=== PATIENT | female | born 1945 | race Caucasian/White ===

== ENCOUNTER → 2021-07-28 10:59 | Outpatient (BNVA) | payer OTHER, SELFPAY | PROVIDERS: Visit Provider Psychiatry & Neurology Neurology | DX: F09 Unspecified mental disorder due to known physiological condition (principal) ==

== ENCOUNTER 2021-08-13 09:41 | Outpatient (REF) | payer OTHER, SELFPAY ==
--- NOTE | ~2021-08-13 | MR_ITS ---
EXAMINATION: MR BRAIN WITHOUT CONTRAST CLINICAL INFORMATION: 76-year-old with anxiety disorder, cognitive disorder. COMPARISON: None TECHNIQUE: Multiplanar multisequence MR imaging of the brain was done without IV contrast. FINDINGS: Brain Volume: Mild diffuse generalized brain parenchymal volume loss with no definite disproportionate focal regional predominance within the limitations of a qualitative assessment. Structural: No malformations. Brain and Meninges: Relatively extensive patchy zones of FLAIR/T2 signal hyperintensity in the subcortical and deeper periventricular white matter of both cerebral hemispheres with patchy zones of T2 hyperintensity in the insular and subinsular regions bilaterally consistent with chronic ischemic microangiopathy. There is bilateral periventricular leukoareosis as well. Gradient refocused imaging demonstrates no evidence of brain parenchymal hemorrhage, hemosiderin staining or abnormal brain parenchymal mineral deposition. Note is made of a 0.8 x 0.4 mm focus of extra-axial signal loss which appears dural-based along the lateral aspect of the anterior right temporal lobe in addition to a smaller similar-appearing focus just anterior to this measuring 0.6 x 0.3 cm. These show susceptibility-weighted signal loss and may reflect small calcified meningiomas with no significant adjacent mass effect or brain parenchymal edema. Otherwise, no significant space-occupying process, extra-axial fluid collection or mass effect is identified. Prominent perivascular spaces are noted in the inferolateral basal ganglia. Ventricles and Subarachnoid Spaces: The ventricular system and subarachnoid spaces are consistent with volume loss without hydrocephalus. Orbital Structures: Bilateral lens extractions are noted. The visualized orbital structures are grossly unremarkable within the limitations of the study. Vascular: Signal voids are noted in the visualized major intracranial vessels. Osseous Structures, Sinuses/Mastoids, Extracranial Soft Tissues: Minor mucosal thickening in the ethmoid complex is noted. Visualized extracranial soft tissue structures appear grossly unremarkable. Bone marrow signal intensity is diffusely heterogeneous which is nonspecific. Multilevel cervical DDD and spondylosis is noted between C2-C3 and C5-C6 inclusive with posterior disc osteophyte complex and flattening of the ventral thecal sac at C3-C4. MR/MR head/brain wo con IMPRESSION: 1. Chronic ischemic microangiopathy in the white matter of both cerebral hemispheres with no evidence for acute or subacute cerebral ischemia, brain parenchymal hemorrhage, extra-axial fluid collection, significant space-occupying process, mass effect or hydrocephalus. 2. Findings suggesting 2 small densely calcified meningiomata along the lateral aspect of the anterior right temporal lobe with no significant mass effect. Consider follow up without and with contrast in 6 months to reassess. 3. Upper cervical degenerative changes as discussed above.
== END 2021-08-13 09:42 | disposition home or self-care (01) ==
LOC: HO.MRI 09:41
PROVIDERS: Visit Provider Psychiatry & Neurology Neurology
DX: F41.9 Anxiety disorder, unspecified (principal); F09 Unspecified mental disorder due to known physiological condition
CPT/HCPCS: 70551

== ENCOUNTER → 2022-08-23 11:34 | Outpatient (BNVA) | payer OTHER, SELFPAY | PROVIDERS: Visit Provider Psychiatry & Neurology Neurology ==

== ENCOUNTER 2022-12-22 11:09 | Outpatient (AMB) | payer OTHER, SELFPAY ==
--- NOTE | 2022-12-22 11:12 | A.OFFVIS_ITS ---
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 Pt lives in an assisted living, and she is in independent all her ADLs, and participates in activities Her neuropsych was c/w dementia. MRI showed multiple white matter changes. She started memantine 7 mg and titrated to 28 mg. Denies side effects. Pt sleeps well, her mood is stable with cigalopram 10 mg daily. She still forgetful and misplace things, but overall her memory is stable. Denies hallucinations or behavior issue. She walks three times a day. COUNT INCLUDES THE [facility] Medical History Carcinoid tumor Cognitive disorder Colon cancer COPD (chronic obstructive pulmonary disease) Dementia Diverticulosis Hematuria HTN (hypertension) Hypothyroidism Osteopenia Prediabetes Thyroid cancer Vitamin B12 deficiency Vitamin D deficiency Surgical History History of hemicolectomy History of tonsillectomy and adenoidectomy Hx of appendectomy Hx of colonoscopy Hx of eye surgery Hx of thyroidectomy Family History Mother Alzheimer disease Father Embolism Sister Breast cancer Diabetes Social History (Updated 12/22/22 @ 11:14 by Malini Rios CMA) Household Members Other:: assisted living Housing: Assisted Living Facility Alcohol intake: never Patient Tobacco Use Status: Former Tobacco user Physical Exam Vital Signs: Last Vital Signs Pulse 70 12/22/22 11:14 BP 148/68 H 12/22/22 11:14 Pulse Ox 98 12/22/22 11:14 Oxygen Delivery Method Room Air 12/22/22 11:14 Const General: cooperative, healthy appearing, comfortable and no acute distress Nutritional Appearance: average body habitus Limitations: no limitations HEENT Head: Yes normal to inspection Eyes Pupils: Equal, round and reactive pupils present Neck Neck: Yes normal visual inspection and Yes full ROM Neuro Other: MMSE- Date- 03/11 Place-2/ Registration-05/07 Spelling 5 letter- 07/09 Recall- 0/3 Repetition- normal 3 step commands 3/3 reading-normal writing- normal Intersecting pentagons- normal Clock drawing-normal Cranial nerves: Yes CN's II-XII intact bilaterally, Yes Facial sensation intact/muscles of mastication intact, Yes Equal, round and reactive pupils present, Yes Normal accommodation reflex present, Yes Bilaterally intact EOM present, Yes Nystagmus not present, Yes Normal facial strength present, Yes Midline tongue present and Yes Symmetric palate elevation present Cognition (Neuro): abnormal cognition (MMSE - she did well on complex tasks but missed points on orientation) Gait exam (Neuro): Normal gait present Coordination: [id number] test normal Psych Appearance: grossly normal Affect: Anxious affect present Assessment & Plan Assessment & Plan (1) Dementia: Code(s): F03.90 - Unspecified dementia, unspecified severity, without behavioral disturbance, psychotic disturbance, mood disturbance, and anxiety (2) Anxiety: Code(s): F41.9 - Anxiety disorder, unspecified Plan Continue to take menatine XR 28 mg qd. Continue to take citalopram 10mg qd. Encouraged to keep having social, physical and cognitive activities. Medications: Changed From memantine start 11/24 22 28 mg PO DAILY 30 ea 0RF To memantine start 11/24 22 28 mg PO DAILY 90 ea 1RF 90 days Discontinued memantine start 09/23/22 Discontinued Reason: Doctor's Order 14 mg PO DAILY 30 ea 0RF memantine start 10/24/22 Discontinued Reason: Doctor's Order 21 mg PO DAILY 30 ea 0RF memantine Discontinued Reason: Doctor's Order 7 mg PO DAILY 30 ea 0RF Coding Level of Care Code Est Pt Level 3 (71531) Diagnoses Dementia F03.90 Anxiety F41.9
[2022-12-22 11:14] VITALS: BP 148/68; PULSE 70; O2SAT 98
== END 2022-12-22 11:29 | disposition home or self-care (01) ==
PROVIDERS: Visit Provider Nurse Practitioner Family
DX: F03.90 Unspecified dementia, unspecified severity, without behavioral disturbance, psychotic disturbance, mood disturbance, and anxiety (principal); F41.9 Anxiety disorder, unspecified
CPT/HCPCS: 99213

== ENCOUNTER → 2022-12-22 11:09 | Outpatient (BNVA) | payer OTHER, SELFPAY | PROVIDERS: Visit Provider Nurse Practitioner Family | DX: F03.90 Unspecified dementia, unspecified severity, without behavioral disturbance, psychotic disturbance, mood disturbance, and anxiety (principal); F41.9 Anxiety disorder, unspecified ==

== ENCOUNTER 2024-05-24 10:48 | Outpatient (AMB) | payer OTHER, SELFPAY ==
--- NOTE | 2024-05-24 10:49 | A.OFFVIS_ITS ---
Vital Signs 05/24/24 10:51 Height 4 ft 11 in Weight 143 lb BMI 28.9 Pulse 83 Pulse Source Pulse Oximeter Pulse Oximetry (%) 99 Oxygen Delivery Method Room Air Intake Visit Reasons: 6 mnts f/u for Muralidhar/Dementia Intake Note: Patient following up for increase of memantine. Allergies shellfish derived Allergy (Verified 05/24/24 10:52) Unknown HPI Comments Details: 79y/o female comes for follow up with her friend. Pt lives in [facility] unit- since Feb 2024 as she was seen wandering she participates in activities Her neuropsych was c/w dementia. MRI showed multiple white matter changes. She started memantine 28 mg. Denies side effects. Pt sleeps well, her mood is stable with citalopram 10 mg daily. Cognition is worse. Denies hallucinations or behavior issue. [facility] Medical History Dementia Cognitive disorder Osteopenia HTN (hypertension) Carcinoid tumor Thyroid cancer Colon cancer Hypothyroidism Diverticulosis Vitamin D deficiency Hematuria COPD (chronic obstructive pulmonary disease) Prediabetes Vitamin B12 deficiency Surgical History History of tonsillectomy and adenoidectomy Hx of appendectomy Hx of eye surgery History of hemicolectomy Hx of thyroidectomy Hx of colonoscopy Family History Mother Alzheimer disease Father Embolism Sister Breast cancer Diabetes Social History Household Members Other:: assisted living Housing: Assisted Living Facility Alcohol intake: never Patient Tobacco Use Status: Former Tobacco user Physical Exam Vital Signs: Last Vital Signs Pulse 83 05/24/24 10:51 Pulse Ox 99 05/24/24 10:51 Oxygen Delivery Method Room Air 05/24/24 10:51 BMI result Body Mass Index 28.9 Const General: cooperative, healthy appearing, comfortable and no acute distress Nutritional Appearance: average body habitus Limitations: no limitations HEENT Head: Yes normal to inspection Neck Neck: Yes normal visual inspection and Yes full ROM Neuro Cranial nerves: Yes CN's II-XII intact bilaterally, Yes Bilaterally intact EOM present, Yes Nystagmus not present, Yes Normal facial strength present, Yes Midline tongue present and Yes Symmetric palate elevation present Cognition (Neuro): abnormal cognition Gait exam (Neuro): Normal gait present Coordination: [id number] test normal Psych Appearance: grossly normal Affect: Anxious affect present Orientation Where are we (state) (county) (town or city) (hospital) (floor)?: state, county and hospital/clinic Registration Name of 3 unrelated objects clearly and slowly, then ask patient to repeat all 3 of them. (1st repeat determines score. Make sure they can repeat all three): object 1, object 2 and object 3 Language Show patient a wristwatch & ask what it is. Repeat for pencil.: watch and pencil Ask the patient to repeat the phrase 'No ifs, ands, or buts' after you.: correct Ask the patient to 'take a piece of paper with their right hand' 'fold paper in half' 'place paper on floor': take paper in right hand, fold paper in half and place paper on floor Score Score: 12 Assessment & Plan Assessment & Plan (1) Dementia: Comment: MMSE 13 Code(s): F03.90 - Unspecified dementia, unspecified severity, without behavioral disturbance, psychotic disturbance, mood disturbance, and anxiety Category: Medical Qualifiers: Dementia type: Alzheimer's Alzheimer's disease onset: late onset Dementia severity: severe Dementia behavioral or psychological symptom: without behavioral, psychotic, or mood disturbance or anxiety Qualified Code(s): G30.1 - Alzheimer's disease with late onset; F02.C0 - Dementia in other diseases classified elsewhere, severe, without behavioral disturbance, psychotic disturbance, mood disturbance, and anxiety (2) Anxiety: Code(s): F41.9 - Anxiety disorder, unspecified Category: Medical Plan Continue to take menatine XR 28 mg qd. Continue to take citalopram 10mg qd. Encouraged to keep having social, physical and cognitive activities. Patient has ADvanced Dementia and is unable to make nay decisions for herself and needs a guardian. Coding Level of Care Code Est Pt Level 4 (56720) Diagnoses Severe late onset Alzheimer's dementia without behavioral disturbance, psychotic disturbance, mood disturbance, or anxiety G30.1; F02.C0 Dementia type: Alzheimer's Alzheimer's disease onset: late onset Dementia severity: severe Dementia behavioral or psychological symptom: without behavioral, psychotic, or mood disturbance or anxiety Anxiety F41.9
[2024-05-24 10:51] VITALS: PULSE 83; O2SAT 99; BMI 28.9
--- OUTSIDE RECORDS SUMMARY | 2024-05-24 12:39 | XMS_ITS | Encounter Summary ---
Author Organization [facility] Address [id number] [place] [phone] Care Team Providers Care Process Chemist Name Role Phone Perla Parikh MD Primary Care Provider Reason for Visit * Reason Onset Date Comments Back Pain 04/30/2024 Encounter Details Date Type Department Care Team (Late st Contact Info) Description 04/30/2024 Telephone Adult Medicine - [place] [address] [place] [id number] Perla Parikh MD [address] [place] [address] Back Pain Social History Tobacco Use Types Packs/Day Years Used Date Smoking Tobacco: Former Cigarettes Q uit: 06/25/2006 Smokeless Tobacco: Never Alcohol Use Standard Drinks/Week Comments Yes 0 (1 standard drink = 0.6 oz pur e alcohol) Comments Unknown Sex and Gender Information Value Date Recorded Sex Assigned at Not on file Legal Sex Female 1:21 AM EST Gender Identity Not on file Sexual Orientation Not on file documented as of this encounter Progress Notes * Tre Rodríguez RN - 04/30/2024 12:07 PM EST Pt has been complaining of back pain , pt did not want to get out of bed this morning , pt is on a memory care unit but her insurance does not accept the doctor they have , pt's friend is calling andwould like an appointment , appointment scheduled * Alejandrina Goodrich - 04/30/2024 11:52 AM EST Patient call requires triage: Symptoms patient is presenting: back pain, having difficulty getting out of bed How long has patient had these symptoms?: over the weekend For ALL patients calling to schedule any appointment (routine, sick visit, follow up, consult, etc.) in the outpatient setting please ask the following questions: Do you have fever of higher than 101, sore throat with difficulty swallowing or severe shortness ofbreath? no If YES to any of these above symptoms, send a message to triage and do not book. Red dot. If no, an audio or video visit should be booked. Have you had close contact with someone with Coronavirus in the last 14 days? no Have you traveled abroad? no Have you traveled recently to another state outside of [place], [place], [place], [place], [place], [place], [place]? no o If yes, did you quarantine for 14 days or have a negative covid test? no If yes to any of the above, patient is not to be scheduled in office until after 14 day quarantine or negative covid test. If pain or injury related was it due to an accident at work or from a motor vehicle accident? If yes, date of accident/Injury: No If yes, gather 3rd republican insurance information Third Libertarian Information: not applicable PCP: Perla Parikh MD Payor: [employer] [facility] [employer] MEDICARE ADVANTAGE / Plan: [employer] [facility] [employer] MEDICARE ADVANTAGE / Product Type: *No Product type* / documented in this encounter Plan of Treatment Upcoming Encounters Date Type Department Care Team (Late st Contact Info) Description 08/31/2024 11:00 AM EDT Office Visit Adult Medicine [facility] [address] [place] [address] Torsten Rodrigues PA [address] [place] [address] documented as of this encounter Visit Diagnoses Not on filedocumented in this encounter Care Teams Process Chemist Relationship Specialty Start Date End Date Perla Parikh MD [address] [id number] PCP - General Internal Medicine 06/09/21 documented as of this encounter
--- OUTSIDE RECORDS SUMMARY | 2024-05-24 12:39 | XMS_ITS | Encounter Summary ---
Author Organization [facility] Address [address] [place] [address] Care Team Providers Care Sourcing Consultant Name Role Phone Perla Parikh MD Primary Care Provider Reason for Visit * Reason Comments Back Pain Encounter Details Date Type Department Care Team ([facility] Contact Info) Description 05/03/2024 10:00 AM EST Office Visit Adult Medicine - [place] [address] [place] [phone] Perla Parikh MD [address] [place] [address] Chronic bilateral low back pain without sciatica (Primary Dx); Primary hypertension; Acquired hypothyroidism; Moderate late onset Alzheimer's dementia without behavioral disturbance, psychotic disturbance, mood disturbance, or anxiety (CMS/HCC) Social History Tobacco Use Types Packs/Day Years Used Date Smoking Tobacco: Former Cigarettes Q uit: 06/25/2006 Smokeless Tobacco: Never Tobacco Cessation:Counseling Given: Not Answered Alcohol Use Standard Drinks/Week Comments Yes 0 (1 standard drink = 0.6 oz pur e alcohol) Comments Unknown Sex and Gender Information Value Date Recorded Sex Assigned at Not on file Legal Sex Female 1:21 AM EST Gender Identity Not on file Sexual Orientation Not on file documented as of this encounter Last Filed Vital Signs Vital Sign Reading Time Taken Comments Blood Pressure 148/62 05/03/2024 10:05 AM EST Pulse 84 05/03/2024 10:05 AM EST Temperature 36.3 ??C (97.3 ??F) 05/03/2024 10:[address] Respiratory Rate - - Oxygen Saturation - - Inhaled Oxygen Concentration - - Weight 64.4 kg (142 lb) 05/03/2024 10:05 AM EST Height 149 cm (4' 10.66 ) 05/03/2024 10:05 AM ES T Body Mass Index 29.01 05/03/2024 10:05 AM EST documented in this encounter Ordered Prescriptions Prescription Sig Dispense Quantity Refills Last Filled Start Date End Date acetaminophen (TylenoL) 325 mg tablet Take 2 tablets (650 mg total) by mouth every 8 (eight) hours. 90 tablet 2 05/03/2024 cyanocobalamin (VITAMIN B-12) 1,000 mcg tablet Take 1 tablet (1,000 mcg total) by mouth 1 (one) time each day. 90 tablet 05/03/2024 documented in this encounter Progress Notes * Perla Parikh MD - 05/03/2024 10:00 AM EST CHIEF COMPLAINT: Back Pain IDENTIFIER: Lindsay Parra is a 79 y.o. old female. HPI: Patient presents today for fu.with her friend Eve( has know her since 1973). currently at the assisted living at [facility] to get more services. C/o back pain x 6 week. Off/on- but gotten worse over the weekend. She is getting some personal care assistance, provide 3meals/day, gets assistance with house keeping. The facility helps medications. Stopped driving in 2021. Postsurgical hypothyroid, hx thyroid cancer- taking synthroid 88mcg - 1 tablet daily. Due for TSH. HTN- BP today is slightly elevated. On Lisinopril 40mg daily. Vitamin B12 deficiency- taking vit B12 supplements. Continues to take daily vitamin D supplements. Had neuropsych testing , MMSE /. Fby -paulat next month and is on namenda and citalopram 15mg daily DEXA in showed Tscore of -2.3. now back on fosamax and GFR is stable. 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 ROS: GENERAL: No malaise, significant weight loss or fever HEENT: No changes in hearing or vision, nose bleeds or other nasal problems NECK: No lumps, goiter, pain or significant neck swelling RESPIRATORY: No cough, wheezing or shortness of breath CARDIOVASCULAR: No chest pain, leg swelling or palpitations GI: No constipation/diarrhea. No abdominal discomfort, blood in stools or black stools : No dysuria, frequency or incontinence PSYCH: No sleep disturbance, mood disorder or recent psychosocial stressors. NEURO: No persistent headache, syncope, seizures, weakness or numbness The remainder of review of systems is noncontributory. PAST MEDICAL HISTORY: Patient Active Problem List Diagnosis Date Noted Moderate dementia ([facility]) 01/18/2022 Vitamin B 12 deficiency 06/06/2016 Prediabetes 02/09/2016 Microscopic hematuria 02/09/2016 Vitamin D deficiency 01/09/2014 Microalbuminuria 05/04/2012 COPD (chronic obstructive pulmonary disease) ([facility]) 12/19/2009 Diverticulitis of colon without hemorrhage 07/19/2008 Lichen sclerosus et atrophicus of the vulva 06/03/2008 Hypertension 12/26/2006 Osteopenia 11/16/2005 Postsurgical hypothyroidism 11/16/2005 Hyperlipidemia 11/16/2005 SOCIAL HISTORY: Social History Tobacco Use Smoking status: Former Current packs/day: 0.00 Types: Cigarettes Quit date: 06/25/2006 Years since quittin.8 Smokeless tobacco: Never Substance Use Topics Alcohol use: Yes FAMILY HISTORY: Family Status Relation Name Status Mother Father Sister 50s Alive Sister Alive MGM MGF PGM PGF No partnership data on file Family History Problem Relation Name Age of Onset Other (Other: alzheimer's) Mother Other (Other: embolism) Father Breast cancer Sister 50s ACTIVE MEDICATIONS: Outpatient Medications Marked as Taking for the 05/03/24 encounter (Office Visit) with Perla Parikh MD Medication Sig Dispense Refill alendronate (FOSAMAX) 70 mg tablet Take 1 tablet (70 mg total) by mouth every 7 (seven) days. LAST RX 07/25/23 FOR 12 TABS AND 3 REFILLS cholecalciferol (VITAMIN D-3) 25 mcg (1,000 unit) capsule Take 1 capsule (1,000 Units total) by mouth 1 (one) time each day. Last rx 07/19/22 for 90 capsules and 4 refills citalopram (CeleXA) 10 mg tablet Take 1.5 tablets (15 mg total) by mouth 1 (one) time each day. cyanocobalamin (VITAMIN B-12) 1,000 mcg tablet Take 1 tablet (1,000 mcg total) by mouth 1 (one) time each day. 90 tablet 0 levothyroxine (SYNTHROID, LEVOTHROID) 88 mcg tablet Take 1 tablet (88 mcg total) by mouth 1 (one) time each day before breakfast. 90 tablet 0 lisinopril (PRINIVIL,ZESTRIL) 40 mg tablet TAKE 1 TABLET BY MOUTH EVERY DAY 90 tablet 1 memantine (NAMENDA XR) 28 mg extended release capsule Take 1 capsule (28 mg total) by mouth 1 (one)time each day. HISTORIC ON MED LIST OF 07/25/23 [DISCONTINUED] cyanocobalamin (VITAMIN B-12) 1,000 mcg tablet TAKE 1 TABLET BY MOUTH EVERY DAY 90 tablet 0 ALLERGIES: Shellfish derived PHYSICAL EXAM: Blood pressure (!) 148/62, pulse 84, temperature 36.3 ??C (97.3 ??F), temperature source Temporal, height 1.49 m (58.66 ), weight 64.4 kg (142 lb). Body mass index is 29.01 kg/m??. BMI is greater than 25.0 (above the normal range) - see Plan APPEARANCE: Alert and in no acute distress HEART: RRR with normal S1 and S2, no murmurs LUNG: Clear to auscultation bilaterally. No accessory muscle use. No wheeze or crackles BACK; no midline tenderness, no paraspinal muscle spasm. No CVA tenderness. GAIT: Normal IMPRESSION: 1. Chronic bilateral low back pain without sciatica 2. Primary hypertension 3. Acquired hypothyroidism 4. Moderate late onset Alzheimer's dementia without behavioral disturbance, psychotic disturbance, mood disturbance, or anxiety (CMS/HCC) PLAN: Like arthrits of lower back causing discomfort. Advised tylenol 650mg tid. BP mild elevated, c/w current meds, Keep fu with neuro. Due for TSH check. Fu in 4months. Cancel appt in may. Orders Placed This Encounter Procedures Comprehensive metabolic panel Standing Status: Future Standing Expiration Date: 05/03/2025 Perla Parikh MD on 05/03/2024 at 10:37 AM EST documented in this encounter Plan of Treatment Upcoming Encounters Date Type Department Care Team (Late st Contact Info) Description 08/31/2024 11:00 AM EDT Office Visit Adult Medicine - [place] [address] [place] [address] Torsten Rodrigues PA [address] [place] [address] documented as of this encounter Visit Diagnoses Diagnosis Chronic bilateral low back pain without sciatica- Primary Primary hypertension Unspecified essential hypertension Acquired hypothyroidism Unspecified hypothyroidism Moderate late onset Alzheimer's dementia without behavioral disturbance, psychotic disturbance, mood disturbance, or anxiety (CMS/HCC) documented in this encounter Discontinued Medications Medication Sig Discontinue Reason Start Date End Da te cyanocobalamin (VITAMIN B-12) 1,000 mcg tablet TAKE 1 TABLET BY MOUTH EVERY DAY Reorder 04/09/2024 05/03/2024 documented as of this encounter Orders Lab Orders Without Results Count Last Ordered D ate First Ordered Date COMPREHENSIVE METABOLIC PANEL 1 05/03/2024 documented in this encounter Care Teams Sourcing Consultant Relationship Specialty Start Date End Date Perla Parikh MD [address] [place] [id number] PCP - General Internal Medicine 06/09/21 documented as of this encounter
--- OUTSIDE RECORDS SUMMARY | 2024-05-24 12:39 | XMS_ITS | Clinical Summary ---
Author Organization [address] [place] [address] [place] [phone] Phone Care Team Providers Care Supervisor Looping Name Role Phone Perla Parikh MD Primary Care Provider Allergies Active Allergy Reactions Criticality Noted Date Comments Shellfish Derived Medium 03/11/2016 Medications alendronate (FOSAMAX) 70 mg tablet Take 1 tablet (70 mg total) by mouth every 7 (seven) days. LAST RX 07/25/23 FOR 12 TABS AND 3 REFILLS 07/25/19 24 Active cholecalcifero l (VITAMIN D-3) 25 mcg (1,000 unit) capsule Take 1 capsule (1,000 Units total) by mouth 1 (one) time each day. Last rx 07/19/22 for 90 capsules and 4 refills 07/20/19 23 Active citalopram (CeleXA) 10 mg tablet Take 1.5 tablets (15 mg total) by mouth 1 (one) time each day. 12/26/19 22 Active memantine (NAMENDA XR) 28 mg extended release capsule Take 1 capsule (28 mg total) by mouth 1 (one) time each day. HISTORIC ON MED LIST OF 07/25/23 Active lisinopril (PRINIVIL,ZEST RIL) 40 mg tablet TAKE 1 TABLET BY MOUTH EVERY DAY 90 tablet 1 04/09/19 25 Active cyanocobalamin (VITAMIN B-12) 1,000 mcg tablet Take 1 tablet (1,000 mcg total) by mouth 1 (one) time each day. 90 tablet 05/03/19 25 Active acetaminophen (TylenoL) 325 mg tablet Take 2 tablets (650 mg total) by mouth every 8 (eight) hours. 90 tablet 2 05/03/19 25 Active levothyroxine (SYNTHROID, LEVOTHROID) 88 mcg tablet TAKE 1 TABLET BY MOUTH EVERY DAY BEFORE BREAKFAST 90 tablet 05/17/19 25 Active levothyroxine (SYNTHROID, LEVOTHROID) 88 mcg tablet Take 1 tablet (88 mcg total) by mouth 1 (one) time each day before breakfast. 90 tablet 02/21/20 24 025 Discontinued cyanocobalamin (VITAMIN B-12) 1,000 mcg tablet TAKE 1 TABLET BY MOUTH EVERY DAY 90 tablet 04/09/19 25 025 Discontinued(Re order) Active Problems Problem Noted Date Diagnosed Date Moderate dementia 01/18/2022 Vitamin B 12 deficiency 06/06/2016 Prediabetes 02/09/2016 Microscopic hematuria 02/09/2016 Overview (12/16/2023): Urine for cytology x 3 neg 2014 Vitamin D deficiency 01/09/2014 Microalbuminuria 05/04/2012 COPD (chronic obstructive pulmonary disease) Overview (12/16/2023): Moderate on PFT Diverticulitis of colon without hemorrhage 07/19 Overview (12/16/2023): Lichen sclerosus et atrophicus of the vulva 05/07 Hypertension 12/26/2006 Osteopenia 11/16/2005 Overview (12/16/2023): 03/2022 16% risk of major osteoporotic fracture and a 4.6% risk of hip fracture Postsurgical hypothyroidism 11/16/2005 Hyperlipidemia 11/16/2005 Encounters Date Type Department Care Team Description 05/03/2024 10:00 AM EST Office Visit Adult Medicine [address] [phone] Perla Parikh MD Chronic bilateral low back pain without sciatica (Primary Dx); Primary hypertension; Acquired hypothyroidism; Moderate late onset Alzheimer's dementia without behavioral disturbance, psychotic disturbance, mood disturbance, or anxiety ([facility]) 05/03/2024 Telephone Adult Medicine [facility] [address] [place] [phone] Perla Parikh MD Faxed Order PT Therapy Orders evaluation/treatment 04/30/2024 Telephone Adult Medicine [facility] [address] [place] [phone] Perla Parikh MD Back Pain 03/01/2024 Telephone Adult Medicine [facility] [address] [place] [phone] Perla Parikh MD fax manolo notes from Last 3 Months Immunizations Name Administration Dates Next Due Influenza Quadravalent, lee mbinant, 0.5ml, preservative free (Flublok) 18yo and older 11/29/2019 Influenza trivalent, 0.5mL ( Fluzone High-dose) 65yo and older 01/26/2024,12/14/2023,11/22/2022,01/18,11/25/2017,12/24/2013,01/01/2013 ,12/27/2011,03/15/2011,12/11/2009,11/07,01/31/2006,12/14/2004 Influenza trivalent, with pr eservative (Fluzone; Afluria) 6mo and older 11/29/2019,01/05/2019,12/24/2016,12/08,12/10/2014,01/01/2013,12/27/2011 ,03/15/2011,12/11/2009,12/04/2008,08/2007,12/26/2006,01/31/2006, 5 Influenza, Unspecified 12/20/2015 Moderna SARS-CoV-2 COVID-19, mRNA, LNP-S, preservative free 06/17/2021,05/21/2020,04/23/2020 Pneumococcal conjugate 13 va lent (Prevnar 13, PCV13) 2mo and older 05/22/2015 Pneumococcal polysaccharide 23 valent (Pneumovax 23) 2yo and older 07/09/2010,07/05/1998 Td Tetanus diptheria (Tdvax) 7yo and older 11/25/2017,10/13/2000 Td, Unspecified 10/13/2000 Tdap Tetanus diptheria acell ular pertussis (Boostrix; Adacel) 7yo and older 11/21/2006 Surgical History Surgery Date Site/Laterality Comments OTHER SURGICAL HISTORY PROCEDURE: HISTORY OTHER; COMMENT: total thyroidectomy, Papillary Ca OTHER SURGICAL HISTORY PROCEDURE: HISTORY OTHER; COMMENT: r hemicolectory, appy, carcinoid ca OTHER SURGICAL HISTORY PROCEDURE: HISTORY OTHER; COMMENT: eye surgery, amblyopia OTHER SURGICAL HISTORY PROCEDURE: [place] UNLISTED PROCEDURE EXTRAOCULAR MUSCLE TONSILLECTOMY ADENOIDECTOMY, BILATERAL MYRINGOTOMY AND TUBES 1979 PROCEDURE: MA TONSILLECTOMY & ADENOIDECTOMY <AGE 12 APPENDECTOMY PROCEDURE: [place] APPENDECTOMY COLONOSCOPY 1998 PROCEDURE: MA COLONOSCOPY FLX DX W/COLLJ SPEC WHEN PFRMD; COMMENT: negative COLONOSCOPY 07/19/2008 PROCEDURE: [place] COLONOSCOPY FLX DX W/COLLJ SPEC WHEN PFRMD; COMMENT: Negative, diverticuli Medical History Medical History Date Comments Personal history of malignan t neoplasm of thyroid 11/16/2005 DX:Personal history of malig nant neoplasm of thyroid Disorder of bone and cartila ge, unspecified 11/16/2005 DX:Disorder of bone and cart ilage, unspecified Postsurgical hypothyroidism 11/16/2005 DX:P ostsurgical hypothyroidism 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/2005 DX:Malignant neoplasm of paula endix vermiformis ([facility]); COMMENT: s/p right colectomy , 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 Heart disease, unspecified 12/13/2006 DX:He art disease, unspecified Unspecified glaucoma(365.9) DX:U nspecified glaucoma(365.9) Generalized osteoarthrosis, unspecified site DX:Generalized osteoarthrosi s, unspecified site Diverticulosis of colon (wit hout mention of hemorrhage) 07/19/2008 DX:Diverticulosis of colon ( without mention of hemorrhage) COPD (chronic obstructive pu lmonary disease) ([facility]) 12/19/2009 DX:COPD (chronic obstructive pulmonary disease) ([facility]) Vitamin D deficiency 01/09/2014 DX:Vitamin D deficiency Hyperlipemia 11/16/2005 DX:Hyperlipemia Essential hypertension, benign 12/26/2006 D X:Essential hypertension, benign Lichen sclerosus et atrophic us of the vulva 06/03/2008 DX:Lichen sclerosus et atrop hicus of the vulva Microalbuminuria 05/04/2012 DX:Microalbumin uria; COMMENT: Elevated on 05/16/2008. History of other specified c onditions presenting hazards to health 1988 DX:History of other speci fied conditions presenting hazards to health; COMMENT: THYROID CA-THYROIDECTOMY Prediabetes 02/09/2016 DX:Prediabetes Microscopic hematuria 02/09/2016 DX:Microsc opic hematuria; COMMENT: Urine for cytology x 3 neg 2014 Family History Medical History Relation Name Comments Other: embolism Father Other: alzheimer's Mother Breast cancer Sister 1 50s Relation Name Status Comments Father Maternal Grandfather Maternal Grandmother Mother Paternal Grandfather Paternal Grandmother Sister 1 50s Alive Sister 2 Alive Social History Tobacco Use Types Packs/Day Years [...] on file Sexual Orientation Not on file Obstetrics History Last Filed Vital Signs Vital Sign Reading Time Taken Comments Blood Pressure 148/62 05/03/2024 10:05 AM EST Pulse 84 05/03/2024 10:05 AM EST Temperature 36.3 ??C (97.3 ??F) 05/03/2024 10:[address] Respiratory Rate 16 01/26/2024 11:39 AM EST Oxygen Saturation - - Inhaled Oxygen Concentration - - Weight 64.4 kg (142 lb) 05/03/2024 10:05 AM EST Height 149 cm (4' 10.66 ) 05/03/2024 10:05 AM ES T Body Mass Index 29.01 05/03/2024 10:05 AM EST Plan of Treatment Upcoming Encounters Date Type Department Care Team (Late st Contact Info) Description 08/31/2024 11:00 AM EDT Office Visit Adult Medicine [address] [phone] Torsten Rodrigues PA [facility] [place] [address] Health Maintenance Due Date Last Done Comments RSV Immunization Patients 60+ Years Old (1 - 1-dose 75+ series) 01/31/2020 Depression Screening 02/07/2022 Falls Risk Assessment 02/07/2022 Medicare Annual Wellness Visit 02/07/2022 Social Influencers of Health Screening 02/07/2022 COVID-19 Vaccine ( season) 2023 06/17/2021, 02/04/2021, 05/21/2020, Additional history exists Zoster Vaccines (2 of 2) 07/02/2024 05/07/2024 Hypertension/CHF/CAD Annual BMP Blood Test 05/03/2025 05/03/2024, 01/23/2024, 03/25/2023 Osteoporosis Screening (Bone Density Screening) 03/17/2027 03/17/2022 DTaP,Tdap,and Td Vaccines (5 - Td or Tdap) 11/26/2027 11/25/2017, 11/21/2006, 10/13/2000, Additional history exists Cholesterol Screening (Lipid Panel) 01/22/2029 01/23/2024, 03/25/2023 Hepatitis C Screening Completed 08/28/2012 Pneumococcal Vaccine: 50+ Years Completed 05/22/2015, 07/09/2010, 07/05/1998 Influenza Vaccine Completed 01/26/2024, , 11/22/2022, Additional history exists HIB Vaccines Aged Out No longer eligi ble based on patient's age to complete this topic HPV Vaccines Aged Out No longer eligi ble based on patient's age to complete this topic Hepatitis A Vaccines Aged Out No long er eligible based on patient's age to complete this topic Hepatitis B Vaccines Aged Out No long er eligible based on patient's age to complete this topic IPV Vaccines Aged Out No longer eligi ble based on patient's age to complete this topic MMR Vaccines Aged Out No longer eligi ble based on patient's age to complete this topic Meningococcal ACWY Vaccine Aged Out N o longer eligible based on patient's age to complete this topic Meningococcal B Vacine Aged Out No lo nger eligible based on patient's age to complete this topic RSV Immunization Patients Under 20 months Aged Out No longer eligible based on patient's age to complete this topic Varicella Vaccines Aged Out No longer eligible based on patient's age to complete this topic Procedures Procedure Name Priority Date/Time Associated Diagnosis Comments COMPREHENSIVE METABOLIC PANEL Routine 05/03/2024 10:50 AM EST Routine general medical examination at a health care facility Acquired hypothyroidism Primary hypertension Moderate late onset Alzheimer's dementia without behavioral disturbance, psychotic disturbance, mood disturbance, or anxiety (CMS/HCC) THYROID STIMULATING HORMONE WITH REFLEX TO FREE T4 AND FREE T3 Routine 05/03/2024 10:50 AM EST Routine general medical examination at a health care facility Acquired hypothyroidism Primary hypertension Moderate late onset Alzheimer's dementia without behavioral disturbance, psychotic disturbance, mood disturbance, or anxiety (CMS/HCC) LIPID PANEL WITH REFLEX TO DIRECT LDL Routine 01/23/2024 3:09 PM EST Essential hypertension, 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 DXA BONE DENSITY STUDY 1+ SITS AXIAL SKEL Routine 03/17/2022 11:36 AM EST Other specified disorders of bone density and structure, multiple sites HEPATITIS C SCREENING Routine 08/28/2012 from Last 3 Months or Most Recently Relevant to Health Maintenance Results * Thyroid stimulating hormone with reflex to free t4 and free t3 (05/03/2024 10:50 AM EST) TSH 0.42 0.40 - 4.00 mcIU/mL LAB CHEMISTRY METHOD 05/03/2024 5:03 PM EST [facility] Blood Venous blood specimen / Unknown Venipuncture / Unknown 05/03/2024 10:50 AM EST 05/03/2024 10:50 AM EST us Perla Parikh MD LAB BLOOD ORDERABLES F inal Result [facility] [address] [place] [address], [place] [phone] * (ABNORMAL) Comprehensive metabolic panel (05/03/2024 10:50 AM EST) [facility] Signature Sodium 144 133 - 145 mmol/L LAB CHEMISTRY METHOD 05/03/2024 4:18 PM [facility] Potassium 4.2 3.5 - 5.5 mmol/L LAB CHEMISTRY METHOD 05/03/2024 4:18 PM [facility] Chloride 111(H) 96 - 110 mmol/L LAB CHEMISTRY METHOD 05/03/2024 4:18 PM [facility] CO2 27 21 - 32 mmol/L LAB CHEMISTRY METHOD 05/03/2024 4:18 PM [facility] Anion Gap 6 3 - 11 LAB CHEMISTRY METHOD 05/03/2024 4:18 PM [facility] Glucose 105(H) 70 - 100 mg/dL LAB CHEMISTRY METHOD 05/03/2024 4:18 PM [facility] BUN 23 5 - 25 mg/dL LAB CHEMISTRY METHOD 05/03/2024 4:18 PM [facility] Creatinine 1.37(H) 0.50 - 1.10 mg/dL LAB CHEMISTRY METHOD 05/03/2024 4:18 PM [facility] eGFR 39(L) >=60 mL/min/1. 73m2 LAB CHEMISTRY METHOD 05/03/2024 4:18 PM [facility] Comment:Calculation based on the??Chronic Kidney Disease Epidemiology Collaboration (CKD-EPI) equation refit??without adjustment for race. BUN/Creatinine Ratio 16.8 LAB CHEMISTRY METHOD 05/03/2024 4:18 PM [facility] Calcium 10.2 8.5 - 10.5 mg/dL LAB CHEMISTRY METHOD 05/03/2024 4:18 PM [facility] AST (SGOT) 17 10 - 42 unit/L LAB CHEMISTRY METHOD 05/03/2024 4:18 PM [facility] ALT (SGPT) 24 10 - 60 unit/L LAB CHEMISTRY METHOD 05/03/2024 4:18 PM [facility] Alkaline Phosphatase 54 42 - 121 unit/L LAB CHEMISTRY METHOD 05/03/2024 4:18 PM [facility] Total Protein 6.3 6.0 - 8.0 g/dL LAB CHEMISTRY METHOD 05/03/2024 4:18 PM [facility] Albumin 3.6 3.2 - 5.0 g/dL LAB CHEMISTRY METHOD 05/03/2024 4:18 PM [facility] Total Bilirubin 0.3 0.0 - 1.4 mg/dL LAB CHEMISTRY METHOD 05/03/2024 4:18 PM [facility] Blood Venous blood specimen / Unknown Venipuncture / Unknown 05/03/2024 10:50 AM EST 05/03/2024 10:50 AM EST us Perla Parikh MD LAB BLOOD ORDERABLES F inal Result [facility] [address] [place] [address], [place] [phone] * (ABNORMAL) Lipid panel with reflex to direct LDL (01/23/2024 3:09 PM EST) Cholesterol 153 0 - 200 mg/dL LAB CHEMISTRY METHOD 01/23/2024 6:32 PM [facility] Triglycerides 151(H) 0 - 150 mg/dL LAB CHEMISTRY METHOD 01/23/2024 6:32 PM [facility] HDL 64 >=40 mg/dL LAB CHEMISTRY METHOD 01/23/2024 6:32 PM [facility] LDL Calculated 59 0 - 100 mg/dL LAB CHEMISTRY METHOD 01/23/2024 6:32 PM [facility] VLDL Cholesterol Sanjeev 30.2 mg/dL LAB CHEMISTRY METHOD 01/23/2024 6:32 PM EST [facility] Non HDL Chol. (LDL+VLDL) 89 <145 mg/dL LAB CHEMISTRY METHOD 01/23/2024 6:32 PM EST [facility] Chol/HDL Ratio 2.4 0.0 - 4.4 LAB CHEMISTRY METHOD 01/23/2024 6:32 PM EST [facility] Blood Venous blood specimen / Unknown Venipuncture / Unknown 01/23/2024 3:09 PM EST 01/23/2024 3:09 PM EST us Torsten LUCERO LAB BLOOD ORDERABLES Final Re sult [facility] [address] [place] [address], [place] [phone] * DXA BONE DENSITY STUDY 1+ SITS AXIAL SKEL (03/17/2022 11:36 AM EST) Anatomical Region Laterality Modality Bone Densitometr y 01/18/2022 3:10 PM EST Narrative 03/17/2022 2:49 PM EST BONE DENSITY ? Lumbar Spine T-score is +2.7 ?? (SD relative to 20-29 y/o adult) Z-score is +5.2 ??(SD relative to age matched peers) This is normal by criteria defined by the WHO. Left Hip T-score is -2.3 Z-score is ??0.3 This is consistent with osteopenia by criteria defined by the WHO. Comparison exam(s): ?? Confidence level is +/-95%. Impression: Based on the World Health Organization criteria, Lindsay Parra should be classified as having osteopenia. This patient has a 16% risk of major osteoporotic fracture and a 4.6% risk of hip fracture over the next 10 years. (World Health Organization Fracture Risk Assessment) The [facility] Department of Internal Medicine recommends using National Osteoporosis Foundation (NOF) guidelines in treatment decisions related to osteoporosis. NOF guidelines suggest considering treatment for postmenopausal women and men aged 50 or older presenting with the following: History of hip or vertebral fracture. T-score less than or equal to -2.5 (DXA) at the femoral neck, total hip, or spine, after appropriate evaluation to exclude secondary causes. Low bone mass (T-score between -1.0 and -2.5 at the femoral neck or spine) AND a 10-year probability of a hip fracture greater than or equal to 3% OR a 10-year probability of a major osteoporosis-related fracture greater than or equal to 20% based on the [place]-adapted WHO algorithm Please note that all treatment decisions require clinical judgment and consideration of individual patient factors, including patient preferences, co-morbidities, previous drug use, risk factors not captured in the FRAX model (e.g., frailty, falls, vitamin D deficiency, increased bone turnover, interval significant decline in bone density) and possible under- or over-estimation of fracture risk by FRAX. Procedure Note Ramya House MD - 04/12/2023 BONE DENSITY Lumbar Spine T-score is +2.7 (SD relative to 20-29 y/o adult) Z-score is +5.2 (SD relative to age matched peers) This is normal by criteria defined by the WHO. Left Hip T-score is -2.3 Z-score is 0.3 This is consistent with osteopenia by criteria defined by the WHO. Comparison exam(s): Confidence level is +/-95%. Impression: Based on the World Health Organization criteria, Lindsay Parra should beclassified as having osteopenia. This patient has a 16% risk of majorosteoporotic fracture and a 4.6% risk of hip fracture over the next 10years. (World Health Organization Fracture Risk Assessment) The [facility] Department of Internal Medicine recommendsusing National Osteoporosis Foundation (NOF) guidelines in treatmentdecisions related to osteoporosis. NOF guidelines suggest consideringtreatment for postmenopausal women and men aged 50 or older presentingwith the following: History of hip or vertebral fracture. T-score less than or equal to -2.5 (DXA) at the femoral neck, total hip,or spine, after appropriate evaluation to exclude secondary causes. Low bone mass (T-score between -1.0 and -2.5 at the femoral neck or spine)AND a 10-year probability of a hip fracture greater than or equal to 3% ORa 10-year probability of a major osteoporosis-related fracture greaterthan or equal to 20% based on the [place]-adapted WHO algorithm Please note that all treatment decisions require clinical judgment andconsideration of individual patient factors, including patientpreferences, co-morbidities, previous drug use, risk factors not capturedin the FRAX model (e.g., frailty, falls, vitamin D deficiency, increasedbone turnover, interval significant decline in bone density) and possibleunder- or over-estimation of fracture risk by FRAX. Gretchen LUCERO IMG DXA PROCEDURES Final R esult * Hepatitis C Screening (08/28/2012) [facility] Hepatitis C Screening no interpretation , abstracted Historical Provider MD HEALTH MAINTENANCE Final Result from Last 3 Months or Most Recently Relevant to Health Maintenance Insurance [employer] Care Teams Supervisor Looping Relationship Specialty Start Date End Date Perla Parikh MD [address] [place] [address] [address] [place] [address] PCP - General Internal Medicine 06/09/21
--- OUTSIDE RECORDS SUMMARY | 2024-05-24 12:39 | XMS_ITS | Encounter Summary ---
Author Organization [facility] Address [address] [place] [address] Care Team Providers Care Center Line Cutter Operator Name Role Phone Perla Parikh MD Primary Care Provider Reason for Visit * Reason Onset Date Comments Faxed Order PT Therapy Orders evaluation/treatme nt 05/03/2024 Encounter Details Date Type Department Care Team ([facility] st Contact Info) Description 05/03/2024 Telephone Adult Medicine [facility] [address] [place] [phone] Perla Parikh MD [address] [place] [address] Faxed Order PT Therapy Orders evaluation/treatment Social History Tobacco Use Types Packs/Day Years [...] as of this encounter Progress Notes * Lucie Streling MA - 05/09/2024 2:02 PM EST Order was faxed back. * Perla Parikh MD - 05/03/2024 3:55 PM EST Signed order. * Lucie Sterling MA - 05/03/2024 3:37 PM EST Received faxed and placed in Dr. Perla Parikh MD in basket. * Va Carr - 05/03/2024 9:03 AM EST PLEASE CLOSE MESSAGE WHEN ORDER HAS BEEN FAXED Faxed order PT Therapy Orders, evaluation/treatment received from [employer], requesting signature from provider. Please sign and fax back to [phone]. Order in Red folder documented in this encounter Plan of Treatment Upcoming Encounters Date Type Department Care Team (Late st Contact Info) Description 08/31/2024 11:00 AM EDT Office Visit Adult Medicine - [place] [address] [place] [phone] Torsten Rodrigues PA [address] [place] [address] documented as of this encounter Visit Diagnoses Not on filedocumented in this encounter Care Teams Center Line Cutter Operator Relationship Specialty Start Date End Date Perla Parikh MD [address] [address] PCP - General Internal Medicine 06/09/21 documented as of this encounter
== END 2024-05-24 11:45 | disposition home or self-care (01) ==
LOC: HO.HSMS 10:48
PROVIDERS: Visit Provider Psychiatry & Neurology Neurology
DX: G30.1 Alzheimer's disease with late onset (principal); F02.C0 Dementia in other diseases classified elsewhere, severe, without behavioral disturbance, psychotic disturbance, mood disturbance, and anxiety; F41.9 Anxiety disorder, unspecified
CPT/HCPCS: 99214